=== PATIENT | female | born 1990 | race Caucasian/White ===

== ENCOUNTER 2017-09-26 20:50 | Emergency (ER) | payer SELFPAY ==
[~2017-09-26] VITALS: Ht 152.4 cm; Wt 57.3 kg
[~2017-09-26 20:50] MED LIST: ALBU8HFA IH
[2017-09-26 20:51] VITALS: BP 140/68
== END 2017-09-26 22:00 | disposition home or self-care (01) ==
LOC: EMS 20:51
DX: M25.531 Pain in right wrist (principal); F17.210 Nicotine dependence, cigarettes, uncomplicated; F15.10 Other stimulant abuse, uncomplicated
CPT/HCPCS: 99281; 99406

== ENCOUNTER 2018-11-09 20:59 | Emergency (ER) | payer SELFPAY ==
[~2018-11-09] VITALS: Ht 152.4 cm; Wt 72.3 kg
[2018-11-09 21:09] VITALS: BP 131/100
[2018-11-09 21:34] LABS: APPEARANCE,URINE CLOUDY (CLEAR); BILIRUBIN,URINE NEGATIVE (NEGATIVE); GLUCOSE, URINE (UA) NEGATIVE (NEGATIVE); KETONES,URINE TRACE mg/dL (NEGATIVE); LEUKOCYTE ESTERASE ,URINE LARGE (NEGATIVE); NITRATE,URINE NEGATIVE (NEGATIVE); OCCULT BLOOD,URINE SMALL (NEGATIVE); PH,URINE 7.5 (5.0-8.0); PROTEIN,URINE SEE CONFIRM (NEGATIVE)
[2018-11-09 21:52] LABS: SULFOSALICYLIC ACID,URINE 2+ (Negative)
[2018-11-09 21:54] LABS: WBC,URINE >100 /HPF (0-5)
[2018-11-09 21:55] LABS: BACTERIA,URINE Few /HPF (None Seen); SQUAMOUS EPITHELIAL CELL,UR Few /LPF (None Seen)
[2018-11-09] MEDS ORDERED: PHENAZOPYRIDINE HCL 100 MG TABLET PO ONE (22:30)
[2018-11-09] MEDS ORDERED: KETOROLAC TROMETHAMINE 60 MG/2 ML VIAL IM ONE (22:30)
[2018-11-09] MEDS ORDERED: SULFAMETHOX/TRIMETH DS 800-160 MG/TABLET PO ONE (22:30)
== END 2018-11-09 22:30 | disposition left against medical advice (07) ==
LOC: EMS 21:00
DX: N39.0 Urinary tract infection, site not specified (principal); J45.909 Unspecified asthma, uncomplicated; F17.210 Nicotine dependence, cigarettes, uncomplicated; F19.90 Other psychoactive substance use, unspecified, uncomplicated; Z98.51 Tubal ligation status
CPT/HCPCS: 87086; J1885